=== PATIENT | female | born 1980 | race American Indian/Alaskan Native ===

== ENCOUNTER 2022-04-08 04:56 | Emergency (ER) | payer MEDICARE ==
--- NOTE | 2022-04-08 05:30 | XRay Report ---
CHEST 2 VIEWS INDICATION / CLINICAL INFORMATION: CHEST PAIN. COMPARISON: None available. FINDINGS: SUPPORT DEVICES: None. HEART / MEDIASTINUM: No significant abnormality. LUNGS / PLEURA: No significant pulmonary or pleural abnormality. No pneumothorax. ADDITIONAL FINDINGS: No significant additional findings. IMPRESSION: 1. No acute findings. Signer Name: Daniel Varghese MD Signed: 04/08/2022 5:25 AM Workstation Name: [id number]
[2022-04-08 06:45] LABS: Basophils % (Auto) 0.4 % (0.0-1.8); Eosinophils # (Auto) 0.1 K/mm3 (0.0-0.4); Hemoglobin 12.9 gm/dl (10.1-14.3); Lymphocytes # (Auto) 3.5 K/mm3 (1.2-5.4); Lymphocytes % (Auto) 47.2 % (13.4-35.0); Mean Corpuscular HGB Conc 34 % (30-34); Mean Corpuscular Volume 86 fl (79-97); Monocytes # (Auto) 0.7 K/mm3 (0.0-0.8); Monocytes % (Auto) 10.1 % (0.0-7.3); Platelet Count 260 K/mm3 (140-440); Red Cell Distribution Width 13.7 % (13.2-15.2)
[2022-04-08 07:12] LABS: Alanine Aminotransferase 7 units/L (7-56); Albumin 4.4 g/dL (3.9-5); BUN/Creatinine Ratio 6; Blood Urea Nitrogen 5 mg/dL (7-17); Calcium 9.3 mg/dL (8.4-10.2); Hemolysis Index 8
[2022-04-08 07:48] VITALS: BP 166/99
--- NOTE | 2022-04-08 09:02 | Emergency Department Report ---
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 Patient also reports some near syncope without any fall. Patient denies any fever or chills. Patient noted irregularly irregular menstrual period. No other modifying or associated factors reported. MD Complaint: chest pain - Related Data Previous Rx's Medication Instructions Recorded Last Taken Type hydrOXYzine PAMOATE [Vistaril] 25 mg PO Q6HR PRN 5 Days #20 04/08/22 Unknown Rx capsule NS Allergies Allergy/AdvReac Type Severity Reaction Status Date / Time cyclobenzaprine Allergy Unknown Verified 04/08/22 05:02 [From Flexeril] Penicillins Allergy Hives Verified 04/08/22 05:02 Heart Score - HEART Score History: Slightly suspicious EKG: Normal Age: < 45 Risk factors: 1-2 risk factors Troponin: < normal limit HEART Score: 1 - EKG Read Time Time EKG Completed: 05:03 EKG Read Time: 07:00 - Critical Actions Critical Actions: 0-3 pts:0.9-1.7%risk of adverse cardiac event.Candidate for discharge ED Review of Systems ROS: Stated complaint: CHEST PAINS/BLACKING OUT Other details as noted in HPI Comment: All other systems reviewed and negative Cardiovascular: chest pain, syncope ED Past Medical Hx - Medications Home Medications: Home Medications Medication Instructions Recorded Confirmed Last Taken Type hydrOXYzine PAMOATE [Vistaril] 25 mg PO Q6HR PRN 5 Days #20 04/08/22 Unknown Rx capsule NS ED Physical Exam - General Limitations: No Limitations General appearance: alert, in no apparent distress - Head Head exam: Present: normal inspection - Eye Eye exam: Present: normal appearance Pupils: Present: normal accommodation - ENT ENT exam: Present: normal exam, normal orophraynx, mucous membranes dry - Neck Neck exam: Present: normal inspection, full ROM. Absent: tenderness - Respiratory Respiratory exam: Present: normal lung sounds bilaterally. Absent: respiratory distress, accessory muscle use - Cardiovascular Cardiovascular Exam: Present: regular rate, normal rhythm, normal heart sounds - GI/Abdominal GI/Abdominal exam: Present: soft, normal bowel sounds. Absent: distended, tenderness - Extremities Exam Extremities exam: Present: normal inspection, full ROM, normal capillary refill. Absent: tenderness, pedal edema - Back Exam Back exam: Absent: tenderness - Neurological Exam Neurological exam: Present: alert, oriented X3 - Psychiatric Psychiatric exam: Present: normal affect, normal mood - Skin Skin exam: Present: warm, normal color ED Course Vital Signs 04/08/22 04/08/22 04:59 07:48 Temperature 98.7 F 98.0 F Pulse Rate 99 H 76 Respiratory 18 18 Rate Blood Pressure 181/114 Blood Pressure 166/99 [Left] O2 Sat by Pulse 97 100 Oximetry KRISTAN score - Kristan Score Age > 65: (0) No Aspirin use within the Past 7 Days: (0) No 3 or more CAD Risk Factors: (0) No 2 or more Angina events in past 24 hrs: (0) No Known CAD with more than 50% Stenosis: (0) No Elevated Cardiac Markers: (0) No ST Deviation Greater than 0.5mm: (0) No KRISTAN Score: 0 ED Medical Decision Making - Lab Data Result diagrams: 04/08/22 05:19 04/08/22 05:19 - EKG Data -: EKG Interpreted by Co EKG shows normal: sinus rhythm Rate: normal - EKG Data Interpretation: no acute changes 04/08/22 09:03 Noted with normal sinus rhythm at a rate of [address] elevation or depression in this normal ECG. - Medical Decision Making Here with chest pain/pressure--differential could be but not limited to myocardial infarction, pulmonary embolism, costochondritis, anxiety, gastritis, GERD, pancreatitis, and or pyelonephritis--in order to rule out the above-- so will go ahead and order routine cardiopulmonary work-up that include troponin, EKG, chest x-ray, BNP, CKMB, and CBC, CMP and urinalysis for any correctable infectious process or electrolyte abnormality as a cause. Initial EKG noted with normal sinus rhythm with no acute findings coupled with normal initial troponin this is likely noncardiac we will continue to monitor and follow-up the above work-up. This is likely related to work stress. Lab reviewed including cardiac enzyme the initial troponin and repeated troponin to be negative for any cardiac event. Patient reassured and DC home on Bexsero with close follow-up with her primary doctor. Critical care attestation.: If time is entered above; I have spent that time in minutes in the direct care of this critically ill patient, excluding procedure time. ED Disposition Clinical Impression: Non-cardiac chest pain Disposition: 01 HOME / SELF CARE / HOMELESS Is pt being admited?: No Does the pt Need Aspirin: No Condition: Stable Instructions: Nonspecific Chest Pain, Adult Additional Instructions: Your cardiac evaluation is negative for any cardiac events. Take your new medication to help your symptoms call and schedule follow-up with your primary doctor in the next 3 to 5 days for progress Please do not hesitate to call or return to emergency room if your symptoms worsen Prescriptions: hydrOXYzine PAMOATE [Vistaril] 25 mg PO Q6HR PRN 5 Days #20 capsule NS PRN Reason: Pain , Severe (7-10) Time of Disposition: 12:27
--- NOTE | 2022-04-09 22:13 | Electrocardiograph Report ---
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
== END 2022-04-08 12:57 | disposition home or self-care (01) ==
LOC: ED 04:56
DX: R07.9 Chest pain, unspecified (principal); Z88.0 Allergy status to penicillin; Z91.09 Other allergy status, other than to drugs and biological substances
CPT/HCPCS: 36415; 71046; 80053; 84484; 85025; 93005; 99283

== ENCOUNTER 2022-05-10 19:05 | Emergency (ER) | payer MEDICARE ==
[2022-05-10] MEDS ORDERED: ASPIRIN 325 MG TAB PO ONE (20:00)
--- NOTE | 2022-05-10 20:27 | XRay Report ---
CHEST 1 VIEW 05/10/2022 7:17 PM INDICATION / CLINICAL INFORMATION: chest pain. COMPARISON: 04/08/2022 FINDINGS: SUPPORT DEVICES: None. HEART / MEDIASTINUM: No significant abnormality. LUNGS / PLEURA: No significant pulmonary or pleural abnormality. No pneumothorax. ADDITIONAL FINDINGS: None IMPRESSION: 1. No acute chest process. Signer Name: Jese Rose MD Signed: 05/10/2022 8:23 PM Workstation Name: [id number]
[2022-05-10 20:41] LABS: Hematocrit 43.4 % (30.3-42.9); Hemoglobin 13.8 gm/dl (10.1-14.3); Mean Corpuscular HGB Conc 32 % (30-34); Mean Corpuscular Volume 86 fl (79-97); Platelet Count 387 K/mm3 (140-440); Red Blood Count 5.04 M/mm3 (3.65-5.03); Red Cell Distribution Width 14.3 % (13.2-15.2)
[2022-05-10 20:51] LABS: Alanine Aminotransferase 8 units/L (7-56); Albumin 4.6 g/dL (3.9-5); BUN/Creatinine Ratio 8; Blood Urea Nitrogen 7 mg/dL (7-17); Calcium 9.8 mg/dL (8.4-10.2); Hemolysis Index 0
[2022-05-10 21:02] LABS: Basophils % (Manual) 0 % (0.0-1.8); Eosinophils % (Manual) 0 % (0.0-4.3); Total Cells Counted 100
[2022-05-10 21:03] LABS: RBC Morphology Normal
[2022-05-11 01:36] LABS: Amphetamine Screen,Urine PRESUMPTIVE NEGATIVE; Benzodiazepines Screen,Urine PRESUMPTIVE NEGATIVE; Cannabinoid Screen,Urine PRESUMPTIVE NEGATIVE; Cocaine Screen,Urine PRESUMPTIVE NEGATIVE; Methadone Screen,Urine PRESUMPTIVE NEGATIVE; Opiate Screen,Urine PRESUMPTIVE NEGATIVE
[2022-05-11] MEDS ORDERED: SODIUM CHLORIDE 0.9% 1000 ML 1,000 ML IV ONE (01:38)
[2022-05-11] MEDS ORDERED: MORPHINE 4 MG/1 ML INJ IV ONE (01:39)
[2022-05-11] MEDS ORDERED: ONDANSETRON 4 MG/2 ML INJ IV ONE (01:39)
[2022-05-11 01:44] LABS: Bacteria,Urine 1+ /HPF (Negative); Mucus,Urine FEW /HPF
[2022-05-11 01:46] LABS: Color,Urine Yellow (Yellow)
--- NOTE | 2022-05-11 04:27 | Cat Scan Report ---
CT abdomen pelvis wo con INDICATION / CLINICAL INFORMATION: fever, abdominal pain. TECHNIQUE: Axial CT imaging of abdomen and pelvis was obtained without contrast. Coronal and sagittal reformatte d imaging obtained and reviewed. All CT scans at this location are performed using CT dose reduction for ALARA by means of automated exposure control. COMPARISON: None available. FINDINGS: CT abdomen without contrast demonstrates grossly normal appearance of the liver, spleen, kidneys, and adrenal glands. Prior cholecystectomy. There is questionable inflammatory change involving the pancr eatic body and tail. Clinical correlation as to whether the patient has acute pancreatitis. Abdominal aorta is unremarkable. CT pelvis without contrast does not demonstrate mass, free fluid, or focal inflammatory change. Susan l appendix is present in the right lower quadrant. Bladder is unremarkable. GI tract is within normal limits. Visualized lung bases are clear. No acute osseous abnormality noted. IMPRESSION: 1. Questionable mild acute pancreatitis. Please correlate with lipase and amylase levels. 2. No additional significant finding. Signer Name: Farideh Costa MD Signed: 05/11/2022 4:23 AM Workstation Name: [id number]
[2022-05-11] MEDS ORDERED: ALUM-MAG HYDROXIDE-SIMETHICONE 200-200-20MG/5ML ORAL LIQD 30 ML PO ONE (04:55)
[2022-05-11] MEDS ORDERED: LIDOCAINE VISCOUS 2% 15 ML ORAL LIQD PO ONE (04:55)
[2022-05-11] MEDS ORDERED: DICYCLOMINE 10 MG/5 ML ORAL LIQD PO ONE (04:55)
[2022-05-11 05:54] VITALS: BP 163/101
--- NOTE | 2022-05-11 06:06 | Emergency Department Report ---
ED Abdominal Pain HPI - General Chief Complaint: Chest Pain Stated Complaint: CHEST PAIN Time Seen by Provider: 05/11/22 01:24 Source: patient Mode of arrival: Ambulatory Limitations: No Limitations - History of Present Illness Initial Comments: 42 yo black female with no pmh presents to ed for evaluation of chest pain. She states that for the past month, she has had chest and epigastric pain. She states that she has been seen at and in Ed without any improvement. She states that she has had n/v, sob, dizziness. she states that she was seen at 2 weeks ago and was told that she had some blood in her urine. She states that she has had some dysuria and intermittent fever. She states that some times, it feels like her entire right side is throbbing. MD Complaint: abdominal pain -: Gradual, month(s) (1) Location: epigastric (and chest) Migration to: no migration Severity scale (0 -10): 8 Quality: cramping, aching Consistency: intermittent Associated Symptoms: nausea, vomiting, fever, dysuria. denies: diarrhea, chills, hematemesis, hematochezia, hematuria, anorexia, syncope - Related Data LMP (females 10-50): other (s/p hysterectomy) Previous Rx's Medication Instructions Recorded Last Taken Type hydrOXYzine PAMOATE [Vistaril] 25 mg PO Q6HR PRN 5 Days #20 04/08/22 Unknown Rx capsule NS Ciprofloxacin HCl 500 mg PO DAILY #3 tab 05/11/22 Unknown Rx Dicyclomine [Bentyl] 20 mg PO QID PRN #30 tablet 05/11/22 Unknown Rx Ondansetron [Zofran Odt] 4 mg PO Q8HR PRN #12 tab.rapdis 05/11/22 Unknown Rx Pantoprazole [Protonix] 40 mg PO QDAY #30 tablet 05/11/22 Unknown Rx Allergies Allergy/AdvReac Type Severity Reaction Status Date / Time cyclobenzaprine Allergy Unknown Verified 05/10/22 19:59 [From Flexeril] ibuprofen Allergy Nausea Verified 05/10/22 19:59 Penicillins Allergy Hives Verified 05/10/22 19:59 ED Review of Systems ROS: Stated complaint: CHEST PAIN Other details as noted in HPI Comment: All other systems reviewed and negative Constitutional: fever. denies: chills, malaise, weakness Eyes: denies: eye pain, eye discharge ENT: denies: ear pain, congestion Respiratory: denies: shortness of breath, SOB with exertion, SOB at rest, stridor, wheezing Cardiovascular: chest pain. denies: palpitations, dyspnea on exertion, orthopnea, edema, syncope, paroxysmal nocturnal dyspnea Gastrointestinal: abdominal pain, nausea, vomiting. denies: diarrhea, hematemesis, melena Genitourinary: dysuria. denies: urgency, frequency, hematuria, discharge, abnormal menses, dyspareunia Neurological: denies: headache, weakness ED Past Medical Hx - Past Medical History Previous Medical History?: No - Surgical History Past Surgical History?: No - Social History Smoking Status: Current Every Day Smoker - Medications Home Medications: Home Medications Medication Instructions Recorded Confirmed Last Taken Type hydrOXYzine PAMOATE [Vistaril] 25 mg PO Q6HR PRN 5 Days #20 04/08/22 Unknown Rx capsule NS Ciprofloxacin HCl 500 mg PO DAILY #3 tab 05/11/22 Unknown Rx Dicyclomine [Bentyl] 20 mg PO QID PRN #30 tablet 05/11/22 Unknown Rx Ondansetron [Zofran Odt] 4 mg PO Q8HR PRN #12 tab.rapdis 05/11/22 Unknown Rx Pantoprazole [Protonix] 40 mg PO QDAY #30 tablet 05/11/22 Unknown Rx ED Physical Exam - General Limitations: No Limitations General appearance: alert, in no apparent distress - Head Head exam: Present: atraumatic, normocephalic - Eye Eye exam: Present: normal appearance - Neck Neck exam: Present: normal inspection, full ROM. Absent: tenderness, lymphadenopathy - Respiratory Respiratory exam: Present: normal lung sounds bilaterally, chest wall tenderne ss. Absent: respiratory distress - Cardiovascular Cardiovascular Exam: Present: tachycardia, normal heart sounds - GI/Abdominal GI/Abdominal exam: Present: soft, tenderness (epiastric and RUQ), normal bowel sounds. Absent: distended, guarding, rebound - Extremities Exam Extremities exam: Present: normal inspection, full ROM, normal capillary refill. Absent: tenderness, pedal edema, joint swelling, calf tenderness - Back Exam Back exam: Present: normal inspection, full ROM. Absent: tenderness, CVA tenderness (R), CVA tenderness (L) - Neurological Exam Neurological exam: Present: alert, oriented X3, CN II-XII intact, normal gait, reflexes normal - Psychiatric Psychiatric exam: Present: normal affect, normal mood - Skin Skin exam: Present: warm, dry, intact, normal color ED Course Vital Signs 05/10/22 05/11/22 05/11/22 19:56 00:26 00:31 Temperature 99.2 F Pulse Rate 117 H 86 84 Respiratory 18 18 Rate Blood Pressure 132/79 Blood Pressure 145/103 [Left] O2 Sat by Pulse 100 100 Oximetry 05/11/22 05/11/22 05/11/22 00:45 00:47 00:48 Temperature 97.9 F Pulse Rate 73 Respiratory 12 12 Rate Blood Pressure 142/101 Blood Pressure [Left] O2 Sat by Pulse 100 100 Oximetry 05/11/22 05/11/22 05/11/22 01:01 01:15 01:30 Temperature Pulse Rate 82 65 69 Respiratory 14 17 17 Rate Blood Pressure 147/99 158/95 135/91 Blood Pressure [Left] O2 Sat by Pulse 100 100 95 Oximetry 05/11/22 05/11/22 05/11/22 01:45 01:59 02:01 Temperature Pulse Rate 81 70 Respiratory 16 16 14 Rate Blood Pressure 134/88 139/92 Blood Pressure [Left] O2 Sat by Pulse 100 100 Oximetry 05/11/22 05/11/22 05/11/22 02:15 02:31 02:45 Temperature Pulse Rate 65 71 65 Respiratory 15 10 L 13 Rate Blood Pressure 132/86 142/91 128/92 Blood Pressure [Left] O2 Sat by Pulse 100 100 100 Oximetry 05/11/22 05/11/22 02:50 05:54 Temperature 98.0 F Pulse Rate 77 Respiratory 12 Rate Blood Pressure Blood Pressure 163/101 [Left] O2 Sat by Pulse 100 Oximetry - Reevaluation(s) Reevaluation #1: 05/11/22 06:01 Patient states that pain was much improved after GI cocktail. ED Medical Decision Making - Lab Data Result diagrams: 05/10/22 20:23 05/10/22 20:23 - EKG Data Interpretation: no acute changes - Radiology Data Radiology results: report reviewed, image reviewed CT abdomen and pelvis without contrast: FINDINGS: CT abdomen without contrast demonstrates grossly normal appearance of the liver, spleen, kidneys, and adrenal glands. Prior cholecystectomy. There is questionable inflammatory change involving the pancreatic body and tail. Clinical correlation as to whether the patient has acute pancreatitis. Abdominal aorta is unremarkable. CT pelvis without contrast does not demonstrate mass, free fluid, or focal inflammatory change. Normal appendix is present in the right lower quadrant. Bladder is unremarkable. GI tract is within normal limits. Visualized lung bases are clear. No acute osseous abnormality noted. IMPRESSION: 1. Questionable mild acute pancreatitis. Please correlate with lipase and amylase levels. 2. No additional significant finding. CXR: FINDINGS: SUPPORT DEVICES: None. HEART / MEDIASTINUM: No significant abnormality. LUNGS / PLEURA: No significant pulmonary or pleural abnormality. No pneumothorax. ADDITIONAL FINDINGS: None IMPRESSION: 1. No acute chest process. - Medical Decision Making 42 yo black female with no pmh presents to ed for evaluation of chest pain. She states that for the past month, she has had chest and epigastric pain. She states that she has been seen at and in Ed without any improvement. She states that she has had n/v, sob, dizziness. she states that she was seen at 2 weeks ago and was told that she had some blood in her urine. She states that she has had some dysuria and intermittent fever. She states that some times, it feels like her entire right side is throbbing. Physical exam unremarkable. EKG and troponin wnl. CT with possible mile acute pancreatitis but lipase wnl. Elevated WBC along with dysuria and intermittent fever, so will treat with 3 day coarse of cipro. Patient will be discharged home to follow up with GI for further evaluation and management. She is advised to return to ed as needed. She verbalized understanding of and agreement with plan of care. Critical care attestation.: If time is entered above; I have spent that time in minutes in the direct care of this critically ill patient, excluding procedure time. ED Disposition Clinical Impression: Epigastric pain Disposition: HOME / SELF CARE / HOMELESS Is pt being admited?: No Does the pt Need Aspirin: No Condition: Stable Instructions: Abdominal Pain, Adult, [id number], Gastroesophageal Reflux Di sease, Adult, [id number] Additional Instructions: Take medications as prescribed. Follow-up with your primary care provider if no improvement or worsening symptoms. Return to the emergency department as needed. Prescriptions: Dicyclomine [Bentyl] 20 mg PO QID PRN #30 tablet PRN Reason: Pain, Moderate (4-6) Ciprofloxacin HCl 500 mg PO DAILY #3 tab Pantoprazole [Protonix] 40 mg PO QDAY #30 tablet Ondansetron [Zofran Odt] 4 mg PO Q8HR PRN #12 tab.rapdis PRN Reason: Nausea And Vomiting Referrals: CLARITA VENTURA MD [Primary Care Provider] - 3-5 Days MARY STEVENSON MD [Staff Physician] - 3-5 Days EDWIN MCCORMICK MD [Staff Physician] - 3-5 Days NA IZQUIERDO MD [Staff Physician] - 3-5 Days LOGAN NOLAN MD [Staff Physician] - 3-5 Days Forms: Work/School Release Form(ED) Time of Disposition: 06:06
--- NOTE | 2022-05-11 09:33 | Electrocardiograph Report ---
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
== END 2022-05-11 06:42 | disposition home or self-care (01) ==
LOC: ED 19:05
DX: R10.13 Epigastric pain (principal); F17.200 Nicotine dependence, unspecified, uncomplicated; Z88.0 Allergy status to penicillin; Z88.6 Allergy status to analgesic agent; Z88.8 Allergy status to other drugs, medicaments and biological substances
CPT/HCPCS: 36415; 71045; 74176; 80053; 80307; 81001; 83690; 84484; 85007; 85025; 93005; 96361; 96374; 96375; 99285; J2270; J2405; J7030